=== PATIENT | male | born 1950 | race Caucasian/White ===

== ENCOUNTER → 2018-12-05 | Outpatient (CLI) | payer OTHER | LOC: COL.RAD 14:00 | DX: Z85.520 Personal history of malignant carcinoid tumor of kidney (principal) ==

== ENCOUNTER → 2019-02-23 | Outpatient (CLI) | payer OTHER | LOC: COL.RAD 12:18 | DX: Z01.812 Encounter for preprocedural laboratory examination (principal); E27.8 Other specified disorders of adrenal gland; K76.0 Fatty (change of) liver, not elsewhere classified; N40.0 Benign prostatic hyperplasia without lower urinary tract symptoms; Z85.520 Personal history of malignant carcinoid tumor of kidney | CPT/HCPCS: Q9967 ==

== ENCOUNTER → 2019-10-12 | Outpatient (CLI) | payer OTHER | LOC: COL.RAD 10:00 | DX: C64.1 Malignant neoplasm of right kidney, except renal pelvis (principal); E27.8 Other specified disorders of adrenal gland; I70.0 Atherosclerosis of aorta; Z98.890 Other specified postprocedural states | CPT/HCPCS: Q9967 ==

== ENCOUNTER → 2020-02-29 | Outpatient (CLI) | payer OTHER | LOC: COL.RAD 08:10 | DX: C64.1 Malignant neoplasm of right kidney, except renal pelvis (principal); K76.0 Fatty (change of) liver, not elsewhere classified; I71.4 Abdominal aortic aneurysm, without rupture; Z98.890 Other specified postprocedural states | CPT/HCPCS: Q9967 ==

== ENCOUNTER 2023-03-23 23:46 | Emergency (ER) | payer OTHER ==
[~2023-03-23] VITALS: Ht 167.6 cm; Wt 90.9 kg
[2023-03-23 23:57] VITALS: TEMP 97.8
[2023-03-24 00:24] LABS: COLLECTION METHOD CATHETER
[2023-03-24 00:29] LABS: URINE APPEARANCE Clear (CLEAR/HAZY); URINE COLOR Yellow (YELLOW); URINE GLUCOSE Negative (NEGATIVE); URINE KETONE TRACE (NEGATIVE); URINE PROTEIN(semi-quant) 1+ (NEGATIVE)
[2023-03-24 00:30] LABS: URINE BLOOD Negative (NEGATIVE); URINE NITRATE Negative (NEGATIVE); URINE UROBILINOGEN 0.2 E.U/dL (0.2-1.0)
[2023-03-24 00:42] LABS: BASO % 0.3 % (0.0-2.0); EOS % 0.1 % (0.0-4.0); GRAN # 7.3 K/mm3 (1.4-6.5); GRAN % 70.8 % (42.2-75.2); HEMATOCRIT 50.7 % (42.0-52.0); HEMOGLOBIN 17.2 g/dl (13.5-18.0); LYMPH # 1.8 K/mm3 (1.2-3.4); LYMPH % 17.8 % (20.0-51.0); MEAN CELL VOLUME 89 fl (80.0-100.0); MEAN CORPUSCULAR HEMOGLOBIN 30 pg (27-31); MEAN CORPUSCULAR HGB CONC 34 g/dl (33.0-37.0); MEAN PLATELET VOLUME 8.4 fl (7.4-10.4); MONO % 9.7 % (1.7-9.3); PLATELET COUNT 323 K/mm3 (130-400); RED BLOOD COUNT 5.73 M/mm3 (4.20-5.60); REDCELL DISTRIBUTION WIDTH-CV 13.7 % (11.5-14.5)
[2023-03-24 00:43] LABS: SQUAMOUS EPITHELIAL 0-2 /hpf (0-10); URINE RBC None Seen /hpf (0-2)
[2023-03-24 00:55] LABS: CALCIUM 10.5 mg/dL (8.4-10.2); CREATININE, serum 0.84 mg/dL (0.72-1.25); POTASSIUM 3.8 mmol/L (3.5-4.5)
[2023-03-24 02:15] VITALS: BP 156/98; PULSE 96
== END 2023-03-24 02:15 | disposition home or self-care (01) ==
LOC: COL.ER 23:46
PROVIDERS: Internal Medicine
DX: R33.9 Retention of urine, unspecified (principal); E83.52 Hypercalcemia
CPT/HCPCS: 31860; A4314